=== PATIENT | female | born 1925 | race Caucasian/White ===

== ENCOUNTER 2016-12-19 18:26 | Emergency (ER) | payer MEDICARE, OTHER ==
[2016-12-19] MEDS ORDERED: Sodium Chloride 0.9% 10 ML Syringe FLUSH PRN (18:33)
--- NOTE | 2016-12-19 18:42 | EDM.PDOC ---
ED HPI GENERAL MEDICAL PROBLEM - General Chief Complaint: Upper Extremity Injury/Pain Stated Complaint: CHEST AND ARM PAIN Time Seen by Provider: 12/19/16 18:26 Source of Information: Reports: Patient History Limitations: Reports: No Limitations - History of Present Illness INITIAL COMMENTS - FREE TEXT/NARRATIVE: 89-year-old female presents for evaluation treatment of left arm pain. Patient reports that the pain started yesterday afternoon. She is concerned that she is having an VT. She is reporting pain in the left distal forearm and left wrist. She denies any chest pain, shortness of breath, back pain, neck pain, lightheadedness, dizziness, diaphoresis, numbness, tingling, nausea, vomiting or abdominal pain. No treatments prior to arrival in the ER. 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 She reports she has never had an VT in the past. She is not a diabetic. She is not a smoker and never has been. Patient reports that she did fall about 2 months ago. She developed pain to her hip and had an MRI done. She has not had any pain to the left wrist or hand. Left Arm Pain Score (Numeric/FACES): 7 - Related Data Allergies Allergy/AdvReac Type Severity Reaction Status Date / Time cefadroxil [From Duricef] Allergy Hives Verified 12/19/16 18:46 Home Meds: Home Meds Alendronate Sodium/Vitamin D3 [Fosamax Plus D 70 MG-5,600 IU] 1 tab PO ASDIRECTED 12/19/16 [History] Calcium Carbonate/Vitamin D3 [Calcium 600 + Vit D 200] 1 tab PO DAILY 12/19/16 [ History] Celecoxib [CeleBREX] 200 mg PO DAILY 12/19/16 [History] Furosemide [Furosemide] 40 mg PO BID 12/19/16 [History] Loratadine [Claritin] 10 mg PO ASDIRECTED PRN 12/19/16 [History] Losartan [Cozaar] 50 mg PO DAILY 12/19/16 [History] Metoprolol Tartrate 50 mg PO DAILY 12/19/16 [History] Mv-Mn/Lutein/Zeax/Bilber/Hb277 [Macular Health Formula Capsule] 2 tab PO DAILY 12/19/16 [History] Mv-Mn/Om3/Dha/Epa/FSH/Flx/Lact [Dry Eye Formula Capsule] 1 tab PO DAILY [History] Omeprazole 50 mg PO DAILY 12/19/16 [History] Potassium Chloride [Klor-Con M20] 20 meq PO DAILY 12/19/16 [History] atorvaSTATin [Lipitor] 5 mg PO DAILY 12/19/16 [History] ED ROS GENERAL - Review of Systems Review Of Systems: See Below Respiratory: Denies: Shortness of Breath Cardiovascular: Denies: Chest Pain, Lightheadedness GI/Abdominal: Denies: Abdominal Pain, Nausea, Vomiting Musculoskeletal: Reports: Arm Pain (left distal forearm and left wrist). Denies : Neck Pain, Back Pain Neurological: Denies: Dizziness, Numbness, Syncope, Tingling ED EXAM, GENERAL - Physical Exam Exam: See Below Exam Limited By: No Limitations General Appearance: Alert, WD/WN, No Apparent Distress Ears: Normal External Exam Nose: Normal Inspection Throat/Mouth: Normal Inspection, Normal Lips, Normal Voice, No Airway Compromise Neck: Normal Inspection Respiratory/Chest: No Respiratory Distress, Lungs Clear, Normal Breath Sounds Cardiovascular: Normal Peripheral Pulses, Regular Rate, Rhythm, No Murmur Extremities: Normal Inspection, Other (needle leader strength is 5/5 bilaterally) Neurological: Alert, Oriented, Normal Cognition Psychiatric: Normal Affect, Normal Mood Skin Exam: Warm, Dry, Normal Color EKG INTERPRETATION EKG Date: 12/19/16 Time: 18:40 Rhythm: NSR Rate (Beats/Min): [address]: Normal P-Wave: Present QRS: Normal ST-T: Normal QT: Normal EKG Interpretation Comments: NSR at 77 bpm. RSR' V2. Borderline criteris for LVH. Symmetrical peaked T waves in V2-V4 - consider hyperkalemia. Reviewed by myself and Marlee Hurd. Course - Vital Signs Last Recorded V/S: Last Vital Signs Temp 36.4 C 12/19/16 20:43 Pulse 94 12/19/16 20:43 Resp 16 12/19/16 20:43 BP 144/68 H 12/19/16 20:43 Pulse Ox 94 L 12/19/16 18:35 - Orders/Labs/Meds Orders: Active Orders 24 hr Category Date Time Status Cardiac Monitoring [RC] . DIRECTED Care 12/19/16 18:33 Ordered EKG Documentation Completion [RC] STAT Care 12/19/16 18:33 Ordered Peripheral IV Care [RC] . DIRECTED Care 12/19/16 18:33 Ordered Chest 1V Frontal [CR] Stat Exams 12/19/16 18:33 Ordered Wrist Comp Min 3V Lt [CR] Stat Exams 12/19/16 18:33 Ordered Peripheral IV Insertion Adult [OM.PC] Routine Oth 12/19/16 18:33 Ordered Labs: Laboratory Tests 12/19/16 12/19/16 12/19/16 Range/Units 18:55 18:55 18:55 WBC 10.94 H (3.98-10.04) K/mm3 RBC 3.58 L (3.98-5.22) M/mm3 Hgb 11.1 L (11.2-15.7) gm/L Hct 34.7 (34.1-44.9) % MCV 96.9 H (79.4-94.8) fl MCH 31.0 (25.6-32.2) pg MCHC 32.0 L (32.2-35.5) g/dl RDW Std Deviation 49.6 H (36.4-46.3) fL Plt Count 204 (182-369) K/mm3 MPV 9.4 (9.4-12.3) fl Neut % (Auto) 51.0 (34.0-71.1) % Lymph % (Auto) 29.4 (19.3-51.7) % [place] % (Auto) 16.1 H (4.7-12.5) % Eos % (Auto) 1.5 (0.7-5.8) Baso % (Auto) 0.3 (0.1-1.2) % Neut # (Auto) 5.58 (1.56-6.13) K/mm3 Lymph # (Auto) 3.22 (1.18-3.74) K/mm3 [place] # (Auto) 1.76 H (0.24-0.36) K/mm3 Eos # (Auto) 0.16 (0.04-0.36) K/mm3 Baso # (Auto) 0.03 (0.01-0.08) K/mm3 Manual Slide Review Abnormal smear PT 11.3 (8.0-13.0) SECONDS INR 1.03 APTT 29 (22-36) SECONDS Sodium 139 (136-145) mEq/L Potassium 4.3 (3.5-5.1) mEq/L Chloride 103 (98-107) mEq/L Carbon Dioxide 28 (21-32) mEq/L Anion Gap 12.3 (5-15) BUN 42 H (7-18) mg/dL Creatinine 1.6 H (0.55-1.02) mg/dL Est Cr Clr Drug Dosing 18.85 mL/min Estimated GFR (MDRD) 30 (>60) mL/min BUN/Creatinine Ratio 26.3 H (14-18) Glucose 203 H (83-115) mg/dL Calcium 9.7 (8.5-10.1) mg/dL Total Bilirubin 0.6 (0.2-1.0) mg/dL AST 26 (15-37) U/L ALT 28 (14-59) U/L Alkaline Phosphatase 84 (46-116) U/L CK-MB (CK-2) < 0.5 (0-3.6) ng/ml Troponin I < 0.017 (0.00-0.056) ng/mL Total Protein 8.0 (6.4-8.2) g/dl Albumin 3.6 (3.4-5.0) g/dl Globulin 4.4 gm/dL Albumin/Globulin Ratio 0.8 L (1-2) Meds: Medications Discontinued Medications Generic Name Dose Route Start Last Admin Trade Name Freq PRN Reason Stop Dose Admin Sodium Chloride 10 ml 12/19/16 18:33 12/19/16 19:00 Saline Flush FLUSH 10 ml ASDIRECTED PRN Administration Keep Vein Open - Radiology Interpretation Free Text/Narrative:: chest 1 view shows no acute intrathoracic process. Patient is rotated. Reviewed by myself and Dr. Mcbride. wrist 4 view shows arthritic change at the 1st MCP joint. no acute fractures or dislocations. Reviewed by myself and Dr. Hurd. - Re-Assessments/Exams Free Text/Narrative Re-Assessment/Exam: 12/19/16 20:19 I reviewed the imaging, EKG and labs with the patient. At this time she is anxious to go home. I do not feel that this is cardiac. It is possibly arthritic pain. I recommend she take [id number] Tylenol or Motrin. She may try ice. Follow-up with her primary care provider her symptoms are not much better in 1-2 weeks. Discharge instructions as documented. Departure - Departure Time of Disposition: 20:20 Disposition: Home, Self-Care 01 Condition: Good Clinical Impression: Wrist pain, left Instructions: Wrist Sprain Referrals: Enoc Modi MD [Primary Care Provider] - Forms: ED Department Discharge Additional Instructions: [id number] Tylenol or Motrin as needed for pain relief. you may try icing the wrist 3 or 4 times a day for 10-15 minutes. Follow up with your primary care provider if your symptoms are not much better in 1-2 weeks. Please return to the ER if your symptoms change or worsen. - My Orders Last 24 Hours: My Active Orders 12/19/16 18:33 Cardiac Monitoring [RC] . DIRECTED EKG Documentation Completion [RC] STAT Peripheral IV Care [RC] . DIRECTED Chest 1V Frontal [CR] Stat Wrist Comp Min 3V Lt [CR] Stat Peripheral IV Insertion Adult [OM.PC] Routine - Assessment/Plan Last 24 Hours: My Active Orders 12/19/16 18:33 Cardiac Monitoring [RC] . DIRECTED EKG Documentation Completion [RC] STAT Peripheral IV Care [RC] . DIRECTED Chest 1V Frontal [CR] Stat Wrist Comp Min 3V Lt [CR] Stat Peripheral IV Insertion Adult [OM.PC] Routine
[2016-12-19 20:46] VITALS: BP 144/68
--- NOTE | 2016-12-21 08:42 | CR ---
Chest: Portable view of the chest was obtained. Comparison: No prior chest x-ray. Heart size is slightly prominent but accentuated from portable technique. Tortuous thoracic aorta is seen. Lungs are clear with no acute infiltrates. Slight atelectasis is noted within the right base. Previous sternotomy is noted. Bony structures are grossly intact. Impression: 1. Incidental findings. Nothing acute is appreciated on portable chest x-ray. Diagnostic code #2 MTDD
--- NOTE | 2016-12-21 08:44 | CR ---
Left wrist: Four views of the left wrist were obtained. Comparison: No previous study. Degenerative change is noted at the CMC joint of the thumb. 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 Degenerative change also noted within the DIP and PIP joints. Bony structures are osteopenic. Nothing acute is definitely appreciated. Impression: 1. 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 2. Nothing acute is appreciated on left wrist exam. Diagnostic code #3 MTDD
== END 2016-12-19 20:28 | disposition home or self-care (01) ==
LOC: JD.ED 18:26
DX: M25.532 Pain in left wrist (principal); Z95.1 Presence of aortocoronary bypass graft; Z95.2 Presence of prosthetic heart valve; Z88.1 Allergy status to other antibiotic agents; Z79.899 Other long term (current) drug therapy
CPT/HCPCS: 36415; 71010; 73110; 80053; 82553; 84484; 85025; 85610; 85730; 93005; 99284; J7050